=== PATIENT | female | born 1950 | race Caucasian/White ===

== ENCOUNTER 2016-11-29 05:37 | Day surgery (SDC) | payer OTHER ==
[~2016-11-29] VITALS: Ht 162.6 cm; Wt 76.2 kg
[2016-11-29 06:39] VITALS: Ht 162.6 cm; Wt 76.2 kg
[2016-11-29] MEDS ORDERED: OMEP10CA4 PO (06:48)
[2016-11-29] MEDS ORDERED: IBUP100T46 PO (06:48)
[2016-11-29 07:04] VITALS: BP 173/74; PULSE 84; RESP 12
[2016-11-29] MEDS ORDERED: FENTAnyl 50 MCG/ML VIAL ONE (07:50)
[2016-11-29] MEDS ORDERED: MIDAZOLAM 1 MG/ML 2 ML INJ ONE ×2 (07:50→07:51)
[2016-11-29 08:00] VITALS: BP 129/60; PULSE 73; RESP 14
--- NOTE | 2016-11-29 08:17 | GILP ---
DATE OF PROCEDURE: NAME OF PROCEDURE: Esophagogastroduodenoscopy and biopsy. SURGEON: Sabra Patterson MD PREOPERATIVE DIAGNOSES: 1. Abdominal pain. 2. Chronic heartburn. POSTOPERATIVE DIAGNOSES: 1. Large hiatal hernia. 2. Gastroesophageal reflux disease. 3. Gastritis with erosions. 4. Gastric mucosal biopsies were taken for histopathology. INDICATION FOR THE PROCEDURE: Ms. Pat Warren is a 65-year-old female patient who had upper ab dominal pain and chronic heartburn, not responding to therapy. The patient was scheduled for endosc opic examination for further evaluation. The procedure and possible complications were well explained to the patient, she understood and cons ented to the procedure. DESCRIPTION OF PROCEDURE: Under the influence of fentanyl and Versed, the gastroscope was carefully introduced into the esophagus and under direct vision, it was advanced to the stomach and through t he pylorus into the duodenal bulb and descending duodenum. FINDINGS: ESOPHAGUS: The patient had a large hiatal hernia and gastroesophageal reflux disease. STOMACH: She had gastritis with erosions. Gastric mucosal biopsies were taken for H. pylori test. DUODENUM: Normal. She tolerated the procedure very well and there was no complication from the procedure. At the end of the procedures, she was awake with stable vital signs and she was discharged home to the care of her family. IMPRESSION: Please see postoperative diagnoses. PLAN: 1. Continue omeprazole. 2. Add Zantac 300 mg p.o. at bedtime. 3. Await H pylori test report. Dictated By: SABRA NGO/VISHNU Conf#: [id number] DID#: [id number]
--- NOTE | 2016-11-29 19:21 | CONS ---
DATE OF ADMISSION: 11/29/2016 DATE OF CONSULTATION: PREOPERATIVE GASTROENTEROLOGY CONSULTATION Dear Dr. Velasco, I thank you very much for this kind referral. Ms. Pat Warren is a 65-year-old female patient who has been referred to me for further evaluation of upper abdominal pain and chronic heartburn, no t responding to therapy with omeprazole. There is no past history of peptic ulcer disease. Her raquel etite has been good, and she is not losing any weight. She has been taking ibuprofen. There is no history of gallstones. She does not have any fever, chills, or jaundice. There is no history of li arcelia disease. The patient had abdominal ultrasound done, and the results are awaited. The patient s tates she had a colonoscopy 7 years ago and no colon neoplasm was identified. She denies any change in the bowel habit or rectal bleeding. She is not a hypertensive or diabetic. She does not have a ny heart disease or lung problem. There is no history of kidney disease. She is status post tubal ligation. SOCIAL HISTORY: She is a nonsmoker. She does not abuse alcohol. FAMILY HISTORY: Negative for gastrointestinal tract neoplasm. ALLERGIES: THERE IS NO HISTORY OF SIGNIFICANT DRUG ALLERGY. MEDICATIONS: 1. Omeprazole. 2. Ibuprofen. PHYSICAL EXAMINATION: VITAL SIGNS: She is 5 feet 4 inches tall, and she weighs 164 pounds. HEART: Examination of the heart reveals normal first and second heart sounds. LUNGS: Clear. ABDOMEN: Soft without any distention. Liver and spleen are not palpable. There are no masses. Th ere is no focal tenderness. Normal bowel sounds are heard. CENTRAL NERVOUS SYSTEM: Does not reveal any focal neurological deficit. IMPRESSION: 1. Upper abdominal pain and chronic heartburn, not responding to therapy with omeprazole. 2. The patient has had abdominal ultrasound, and the results are awaited. 3. The patient is on ibuprofen. 4. The patient had colonoscopy 7 years ago, and no colon neoplasm was identified. 5. Status post tubal ligation. PLAN 1. Continue omeprazole. 2. Endoscopic examination for further evaluation. The procedure and possible complications are well explained to the patient. She understands and con sents to the procedure. I thank you once again. With warmest personal regards, Dictated By: SABRA NGO/VISHNU Conf#: [id number] [facility]#: [id number]
== END 2016-11-29 08:42 | disposition home or self-care (01) ==
LOC: GIL 05:37
PROVIDERS: ATTEND Internal Medicine Gastroenterology
DX: K44.9 Diaphragmatic hernia without obstruction or gangrene (principal); K21.9 Gastro-esophageal reflux disease without esophagitis; K29.60 Other gastritis without bleeding
CPT/HCPCS: 43239; 88305; 88312; J2250; J3010; Z7610